=== PATIENT | male | born 1985 | race Caucasian/White ===

== ENCOUNTER 2016-06-05 21:45 | Emergency (ER) | payer SELFPAY ==
[~2016-06-05] VITALS: Ht 160 cm; Wt 74.1 kg
[2016-06-06] MEDS ORDERED: ACETAMINOPHEN/CODEINE 300-30 MG TABLET PO ONE (00:45)
[2016-06-06] MEDS ORDERED: IBUPROFEN 600 MG TABLET PO ONE (00:45)
[2016-06-06 01:26] VITALS: BP 130/88
== END 2016-06-06 01:28 | disposition home or self-care (01) ==
LOC: EMS 21:47
DX: S63.602A Unspecified sprain of left thumb, initial encounter (principal); W21.02XA Struck by soccer ball, initial encounter; Y93.66 Activity, soccer; Y92.89 Other specified places as the place of occurrence of the external cause; Y99.8 Other external cause status
CPT/HCPCS: 29280; 99284